=== PATIENT | female | born 1975 | race Caucasian/White ===

== ENCOUNTER 2017-06-15 03:00 | Observation (INO) | payer OTHER ==
[2017-06-15 03:01] VITALS: BP 147/75; PULSE 96; RESP 16; TEMP 98.6; O2SAT 100
[2017-06-15] MEDS ORDERED: CEPHALEXIN MONOHYDRATE 500 MG CAP PO ONE (04:30)
[2017-06-15] MEDS ORDERED: TETANUS/DIPHTHERIA TOXOID ADULT 0.5 ML VIAL IM ONE (04:30)
[2017-06-15] MEDS ORDERED: NORC5TAB PO (04:42)
[2017-06-15] MEDS ORDERED: CEPH-460 PO (04:42)
--- NOTE | 2017-06-15 04:55 | RADRPT ---
EXAM DATE/TIME: 06/15/2017 04:38 [place] COMPARISON: No previous studies available for comparison. INDICATIONS : Left hand through glass while at work. MEDICAL HISTORY : None. SURGICAL HISTORY : None. ENCOUNTER: Initial ACUITY: 1 day PAIN SCORE: 8/10 LOCATION: Left Hand FINDINGS: Three view examination of the left hand demonstrates no soft tissue swelling, dislocation, or fractur e. The carpal bones appear intact. The interphalangeal and metacarpophalangeal joints are intact. Bony mineralization is normal. CONCLUSION: No fracture or radiopaque foreign body. Pio Koehler MD on June 15, 2017 at 4:53 Board Certified Radiologist. This report was verified electronically.
--- NOTE | 2017-06-15 04:58 | PD ---
HPI Chief Complaint: Laceration/Skin Injury Time Seen by Provider: 04:03 Travel History International Travel<30 days: No Contact w/Intl Traveler<30days: No Traveled to known affect area: No History of Present Illness HPI 41-year-old right-hand dominant white female presents emergency department with a laceration to her left hand which occurred at work earlier this evening. The patient states that she was compacting the garbage in a garbage can when a shard of glass cut her left hand over her third MCP. The patient states that it bled for approximately 1 hour until it stopped bleeding. She states that they had cleansed it thoroughly and then applied wound adhesive. The patient states that she continued to do her work this evening until she noticed a abnormality over her third MCP of the middle finger. She states that she had noticed a irregularity and was concerned and presented to the ER for evaluation. She states that she has not had a tetanus shot over 5 years. She denies any numbness, tingling or weakness. Pain is minimal. PFSH Past Medical History Medical History: Denies Significant Hx Immunizations Current: No Tetanus Vaccination: > 5 Years ?: Not Tubal Ligation: Yes Past Surgical History Section: Yes Social History Alcohol Use: No Tobacco Use: Yes Substance Use: No Allergies-Medications (Allergen,Severity, Reaction): Coded Allergies: sesame seed (Verified Allergy, Unknown, 06/15/17) Reported Meds & Prescriptions Reported Meds & Active Scripts Active [place] (Hydrocodone-Acetaminophen) 5 Mg-325 Mg Tab 1 Tab PO Q8HR PRN Keflex (Cephalexin) 500 Mg Capsule 500 Mg PO Q6H 7 Days Review of Systems General / Constitutional: No: Fever Eyes: No: Visual changes HENT: No: Headaches Cardiovascular: No: Chest Pain or Discomfort Respiratory: No: Shortness of Breath Gastrointestinal: No: Abdominal Pain Genitourinary: No: Dysuria Musculoskeletal: Positive: Pain, No: Arthralgias, Limited ROM, Weakness, Edema Skin: No Rash Neurologic: No: Weakness, Paresthesia Psychiatric: No: Depression Endocrine: No: Polydipsia Hematologic/Lymphatic: No: Easy Bruising Physical Exam Narrative GENERAL: This is a well-nourished, well-developed patient, in no apparent distress. SKIN: No rashes, ecchymoses or lesions. Warm and dry. HEAD: Atraumatic. Normocephalic. EYES: PERRL, EOMI, no discharge or injection. No scleral icterus. EARS: Clear NOSE: Nasal turbinates appear normal. THROAT: Mucosa pink and moist. Airway patent. NECK: Trachea midline. supple, moves head freely. LUNGS: Clear to auscultation. CV: Regular in rhythm. ABDOMEN: Soft nontender. EXT: No clubbing cyanosis or edema. Patient has a 1 cm laceration over the dorsal third metacarpal of the left hand. The laceration goes through the subcutaneous tissues into the extensor tendon. There is a's central deficit approximately 20%-30%. There is concerned that this may have penetrated the joint capsule. Patient is able to fully extend and fully flex her finger without limitations or weakness. She has intact gross sensation and two-point discrimination. The remainder of the hand is unremarkable. Data Data Last Documented VS Vital Signs Date Time Temp Pulse Resp B/P (MAP) Pulse Ox O2 Delivery O2 Flow Rate FiO2 06/15/17 03:01 98.6 96 16 147/75 (99) 100 Room Air Orders Orders Hand, Complete ([id number]) (06/15/17 04:23) Tetanus/Diphtheria Tox Adult (Tetanus/Di (06/15/17 04:30) Cephalexin (Keflex) (06/15/17 04:30) Splint Or Brace Apply/Monitor (06/15/17 04:23) [facility] Medical Decision Making Medical Screen Exam Complete: Yes Emergency Medical Condition: Yes Medical Record Reviewed: Yes Interpretation(s) Last 24 hours Impressions Hand X-Ray 06/15/17 0423 Signed Impressions: Service Date/Time: Thursday, June 15, 2017 04:38 - CONCLUSION: No fracture or radiopaque foreign body. Pio Koehler MD Differential Diagnosis MDM: High Differential diagnoses: Fracture, sprain, strain, dislocation, contusion, neurovascular injury Narrative Course Patient's wound appears to have a laceration through the central portion of the tendon into the joint capsule. The wound has been thoroughly irrigated. Patient's given Keflex 1 g p.o. Tetanus immunization. X-rays negative. Patient's wound is closed with 2 simple sutures. She is placed in a splint in extension. The case has been discussed with Dr. DeCesare he has requested that the patient stay in the ER and he will see her first thing in the morning. Procedures Procedure Narrative LACERATION LOCATION: Left third MCP laceration LENGTH: 1 cm NUMBER OF STITCHES/PATRICK: 2 REPAIR: The area of the laceration was prepped with Betadine and sterilely draped. The laceration was infiltrated with 1% lidocaine with epinephrine. The wound was copiously irrigated and explored without evidence of foreign body , or neurovascular injury. Laceration reveals a central tendon injury with penetration of the joint capsule. the wound was closed using 5-0 Prolene. This was a simple single layer repair. A sterile dressing and splint in extension was applied. The patient was advised to keep the dressing clean and dry. Patient tolerated the procedure well. Diagnosis Primary Impression: Left third MCP laceration with extensor tendon and joint capsule injury Referrals: Bret Arroyo MD 2 days Patient Instructions: General Instructions Additional Instructions: Rest. Elevation. Keep clean and dry. Keflex. Lortab for severe pain. 3 Advil every 6 hours as needed for mild to moderate pain. Call the office Saturday for an appointment Saturday. Keep your hand clean and dry. Med/Other Pt SpecificInfo: Prescription(s) given Scripts Hydrocodone-Acetaminophen ([place]) 5 Mg-325 Mg Tab 1 TAB PO Q8HR Y for PAIN, #9 TAB 0 Refills Prov: Lulu Thompson MD 06/15/17 Cephalexin (Keflex) 500 Mg Capsule 500 MG PO Q6H for Infection for 7 Days, #28 CAP 0 Refills Prov: Lulu Thompson MD 06/15/17 Disposition: 01 DISCHARGE HOME Condition: Stable Rafita Hay Jun 15, 2017 04:58
--- NOTE | 2017-06-15 11:19 | PD ---
Physical Exam Time Seen by Provider: 07:00 Narrative Report received from Rafita norton PA-C at change of shift. The patient is awaiting hand surgeon to come and evaluate the patient at the bedside. Data Data Last Documented VS Vital Signs Date Time Temp Pulse Resp B/P (MAP) Pulse Ox O2 Delivery O2 Flow Rate FiO2 06/15/17 03:01 98.6 96 16 147/75 (99) 100 Room Air Orders Orders Hand, Complete ([id number]) (06/15/17 04:23) Tetanus/Diphtheria Tox Adult (Tetanus/Di (06/15/17 04:30) Cephalexin (Keflex) (06/15/17 04:30) Splint Or Brace Apply/Monitor (06/15/17 04:23) Cefazolin Inj (Ancef Inj) (06/15/17 11:15) Consult Hand Surgery (06/15/17 ) Admit Order (Ed Use Only) (06/15/17 11:36) MDM Supervised Visit with JAVIER: No Narrative Course Report received from Rafita norton PA-C at change of shift. The patient is awaiting hand surgeon to come and evaluate the patient at the bedside. 1100: Dr. Arroyo at bedside. He is taking the patient to surgery and says she can be discharged after surgery. Patient will be admitted to medical with a consult to hand and admitted for 23 hour obs. Call placed for patient admission. 1137: I spoke with KISHAN Montgomery, and report was given for patient admission. Physician Communication Physician Communication KISHAN Montgomery Diagnosis Primary Impression: Left third MCP laceration with extensor tendon and joint capsule injury Admitting Information Admitting Physician Requests: Observation Referrals: Bret Arroyo MD 2 days Patient Instructions: General Instructions Departure Forms: Tests/Procedures Additional Instruction: Rest. Elevation. Keep clean and dry. Keflex. Lortab for severe pain. 3 Advil every 6 hours as needed for mild to moderate pain. Call the office Saturday for an appointment Saturday. Keep your hand clean and dry. Scripts Hydrocodone-Acetaminophen ([place]) 5 Mg-325 Mg Tab 1 TAB PO Q8HR Y for PAIN, #9 TAB 0 Refills Prov: Lulu Thompson MD 06/15/17 Cephalexin (Keflex) 500 Mg Capsule 500 MG PO Q6H for Infection for 7 Days, #28 CAP 0 Refills Prov: Lulu Thompson MD 06/15/17 Disposition: 01 DISCHARGE HOME Condition: Stable Josiaen Browning Jun 15, 2017 11:19
[2017-06-15 11:40] VITALS: BP 137/72; PULSE 90; RESP 16; TEMP 98.4; O2SAT 100
--- NOTE | 2017-06-15 11:50 | PD.CONS ---
History of Present Illness Consult Requested By Primary Care Physician No Primary Care Physician Diagnoses: (1) Hand laceration involving tendon History of Present Illness 41-year-old female who reports that she was pushing garbage into a trash can when a broken piece of glass lacerated the dorsum of her left third metacarpophalangeal joint. Patient came to the emergency room, was washed out by the ER physician, and closed. Patient denies numbness tingling. Patient is up-to-date on tetanus. Review of Systems Review of systems otherwise noncontributory to presenting complaint Past Family Social History Allergies: Coded Allergies: sesame seed (Verified Allergy, Unknown, 06/15/17) Past Medical History Denies Past Surgical History Reported Medications Denies Family History Family history noncontributory to presenting complaint Social History Occasional alcohol no tobacco Physical Exam Vital Signs Vital Signs Date Time Temp Pulse Resp B/P (MAP) Pulse Ox O2 Delivery O2 Flow Rate FiO2 06/15/17 03:01 98.6 96 16 147/75 (99) 100 Room Air Physical Exam No acute distress Alert and oriented 3 Moist mucous membranes PERRLA Skin without rash Respirations nonlabored No gross neurologic deficits Left upper extremity Patient with 1 cm transverse laceration at the level of the dorsal metacarpophalangeal joint Palpable deficit of the extensor tendon centrally No extensor tendon lag of the middle finger Active extension of the left weaker than right, though confounded by pain Sensation intact light touch distally Normal cascade No erythema or other signs of infection Imaging Three-view x-ray image of the hand personally reviewed by me showing no retained foreign body or other acute osseous finding Assessment and Plan Problem List: (1) Hand laceration involving tendon ICD Codes: S61.419A - Laceration without foreign body of unspecified hand, initial encounter; S66.929A - Laceration of unspecified muscle, fascia and tendon at wrist and hand level, unspecified hand, initial encounter Assessment and Plan 41-year-old female who presents with likely zone 5 extensor tendon laceration of the left third digit. Risks benefits and alternative treatments discussed with patient at length and patient's spouse All questions answered Patient and patient's spouse expressed understanding Informed consent obtained Patient is at increased risk of septic arthritis and cellulitis given extensor tendon laceration and wound caused by glass from a garbage We'll plan for left MCP washout should the joint be involved, as well as extensor tendon repair, should the extensor tendon be injured Bret Arroyo MD Jun 15, 2017 11:50
[2017-06-15] MEDS ORDERED: LIDOCAINE HCL 1% PF 5 ML SYRINGE OTHER ONE (12:00)
[2017-06-15] MEDS ORDERED: LACTATED RINGER'S 1000 ML INJ 1,000 ML IV ONE (12:00)
[2017-06-15] MEDS ORDERED: DEXAMETHASONE SOD PHOS 4 MG/ML VIAL IV ONE (12:00)
[2017-06-15] MEDS ORDERED: ceFAZolin INJ 1,000 MG VIAL IV ONE (12:00)
[2017-06-15] MEDS ORDERED: KETOROLAC TROMETHAMINE 30 MG/ML (IVP) VIAL IV PUSH ONE (12:00)
[2017-06-15] MEDS ORDERED: PROPOFOL 200 MG/20 ML AMP IV ONE (12:00)
[2017-06-15] MEDS ORDERED: ONDANSETRON HCL 4 MG/2 ML VIAL IV PUSH ONE (12:00)
[2017-06-15] MEDS ORDERED: ONDANSETRON HCL 4 MG/2 ML VIAL IVP PRN (13:45)
[2017-06-15] MEDS ORDERED: NALOXONE HCL 0.4 MG/ML AMP IV PUSH PRN (13:45)
[2017-06-15] MEDS ORDERED: ACETAMINOPHEN 325 MG TAB PO PRN (13:45)
[2017-06-15] MEDS ORDERED: SODIUM CHLORIDE 0.9% FLUSH 10 ML FLUSH IV FLUSH PRN (13:45)
--- NOTE | 2017-06-15 13:58 | HHI.HP ---
[facility] Primary [facility] Physician No Primary Care Physician Admission Diagnosis Left third MCP laceration with extensor tendon and joint capsule inj Diagnoses: Chief Complaint: left third CMP laercationof the extensor tendon Travel History International Travel<30 Days: No Contact w/Intl Traveler <30 Da: No Traveled to Known Affected Are: No History of Present Illness 41-year-old female who reports that she was pushing garbage into a trash can when a broken piece of glass lacerated the back of her hand. Patient stated she able to move her fingers. Denied any pain but stated it felt numb at the site. Tetanus UTD. patient stated she was put under anesthesia in the past and had no complications. She also denied any CP, SOB, palpitations, lightheadedness/dizziness. All other ROS reviewed and negative. Past Family Social History Past Medical History Denied any PMHs Past Surgical History C section Reported Medications Reported Meds & Active Scripts Active [place] (Hydrocodone-Acetaminophen) 5 Mg-325 Mg Tab 1 Tab PO Q8HR PRN Keflex (Cephalexin) 500 Mg Capsule 500 Mg PO Q6H 7 Days Allergies: Coded Allergies: sesame seed (Verified Allergy, Unknown, 06/15/17) Active Ordered Medications Current Medications Tetanus/ Diphtheria Toxoids (Tetanus/ Diphtheria Tox Adult) 0.5 ml ONCE ONCE IM Last administered on 06/15/17at 04:32; Start 06/15/17 at 04:30; Stop 06/15/17 at 04:37; Status DC Cephalexin Monohydrate (Keflex) 1,000 mg ONCE ONCE PO Last administered on at 04:33; Start 06/15/17 at 04:30; Stop 06/15/17 at 04:37; Status DC Cefazolin Sodium 1000 mg/Sodium Chloride 100 ml @ 200 mls/hr ONCE ONCE IV ; Start 06/15/17 at 11:15; Stop 06/15/17 at 11:44; Status DC Sodium Chloride 1,000 ml @ 100 mls/hr Q10H IV ; Start 06/15/17 at 14:00 Sodium Chloride (NS Flush) 2 ml UNSCH PRN IV FLUSH FLUSH AFTER USING IV ACCESS ; Start 06/15/17 at 13:45 Sodium Chloride (NS Flush) 2 ml BID IV FLUSH ; Start 06/15/17 at 21:00 Acetaminophen (Tylenol) 650 mg Q4H PRN PO TEMP > 100.4; Start 06/15/17 at 13:45 Ondansetron HCl (Zofran Inj) 4 mg Q6H PRN IVP NAUSEA OR VOMITING; Start at 13:45 Naloxone HCl (Narcan Inj) 0.4 mg UNSCH PRN IV PUSH SEE LABEL COMMENTS; Start at 13:45 Family History Father hx of cardiovascular disease Social History smokes tobacco 1-2 pack over week. denied any alcohol or illicit drug use. Physical Exam Vital Signs Vital Signs Date Time Temp Pulse Resp B/P (MAP) Pulse Ox O2 Delivery O2 Flow Rate FiO2 06/15/17 11:40 98.4 90 16 137/72 (93) 100 Room Air 06/15/17 03:01 98.6 96 16 147/75 (99) 100 Room Air Physical Exam GENERAL: This is a well-nourished, well-developed patient, in no apparent distress. SKIN: No rashes, ecchymoses or lesions. Cool and dry. HEAD: Atraumatic. Normocephalic. No temporal or scalp tenderness. EYES: Pupils equal round and reactive. Extraocular motions intact. No scleral icterus. No injection or drainage. ENT: Nose without bleeding, purulent drainage or septal hematoma. Throat without erythema, tonsillar hypertrophy or exudate. Uvula midline. Airway patent. NECK: Trachea midline. No JVD or lymphadenopathy. Supple, nontender, no meningeal signs. CARDIOVASCULAR: Regular rate and rhythm without murmurs, gallops, or rubs. RESPIRATORY: Clear to auscultation. Breath sounds equal bilaterally. No wheezes , rales, or rhonchi. GASTROINTESTINAL: Abdomen soft, non-tender, nondistended. No hepato-splenomegaly , or palpable masses. No guarding. MUSCULOSKELETAL left hand 3rd dorsal MCP sutures intact mild erythema. sensation intact. full ROM but slow with the 3rd left digit. No joint tenderness, effusion, or edema noted. No calf tenderness. Negative Homans sign bilaterally. NEUROLOGICAL: Awake and alert. Cranial nerves II through XII intact. Motor and sensory grossly within normal limits. Five out of 5 muscle strength in all muscle groups. Normal speech. Imaging Last Impressions Hand X-Ray 06/15/17 [id number] Signed Impressions: Service Date/Time: Thursday, June 15, 2017 04:38 - CONCLUSION: No fracture or radiopaque foreign body. MD Altagracia Bush VTE Risk Assessment Caprini VTE Risk Assessment: No/Low Risk (score <= 1) Caprini Risk Assessment Model Point Value = 1 Point Value = 2 Point Value = 3 Point Value = 5 Age 41-60 Minor surgery BMI > 25 kg/m2 Swollen legs Varicose veins or History of unexplained or recurrent spontaneous Oral contraceptives or hormone replacement Sepsis (< 1 month) Serious lung disease, including pneumonia (< 1 month) Abnormal pulmonary function Acute myocardial infarction Congestive heart failure (< 1 month) History of inflammatory bowel disease Medical patient at bed rest Age 61-74 Arthroscopic surgery Major open surgery (> 45 min) Laparoscopic surgery (> 45 min) Malignancy Confined to bed (> 72 hours) Immobilizing plaster cast Central venous access Age >= 75 History of VTE Family history of VTE Factor V Leiden Prothrombin [id number] Lupus anticoagulant Anticardiolipin antibodies Elevated serum homocysteine Heparin-induced thrombocytopenia Other congenital or acquired thrombophilia Stroke (< 1 month) Elective arthroplasty Hip, pelvis, or leg fracture Acute spinal cord injury (< 1 month) Prophylaxis Regimen Total Risk Factor Score Risk Level Prophylaxis Regimen 0-1 Low Early ambulation 2 Moderate Order ONE of the following: *Sequential Compression Device (SCD) *Heparin 5000 units SQ BID 3-4 Higher Order ONE of the following medications: *Heparin 5000 units SQ TID *Enoxaparin/Lovenox 40 mg SQ daily (WT < 150 kg, CrCl > 30 mL/min) *Enoxaparin/Lovenox 30 mg SQ daily (WT < 150 kg, CrCl > 10-29 mL/min) *Enoxaparin/Lovenox 30 mg SQ BID (WT < 150 kg, CrCl > 30 mL/min) AND/OR *Sequential Compression Device (SCD) 5 or more Highest Order ONE of the following medications: *Heparin 5000 units SQ TID (Preferred with Epidurals) *Enoxaparin/Lovenox 40 mg SQ daily (WT < 150 kg, CrCl > 30 mL/min) *Enoxaparin/Lovenox 30 mg SQ daily (WT < 150 kg, CrCl > 10-29 mL/min) *Enoxaparin/Lovenox 30 mg SQ BID (WT < 150 kg, CrCl > 30 mL/min) AND *Sequential Compression Device (SCD) Assessment and Plan Assessment and Plan The 41 y/o Left third MCP laceration with extensor tendon and joint capsule injury -Hand surgeon consulted and scheduled for OR today. -per Hand surgeon can be d/c after procedure. DVT prophylaxis -low risk -ambulate Code Status full Discussed Condition With patient and her nurse Arminda Senior MD Jun 15, 2017 13:58
[2017-06-15] MEDS ORDERED: SODIUM CHLOR 0.9% 1000 ML INJ 1,000 ML IV SCH (14:00)
[2017-06-15] MEDS ORDERED: LIDOCAINE HCL 1% 50 ML VIAL ONE (14:42)
[2017-06-15] MEDS ORDERED: BUPIVACAINE HCL PF 0.5% 30 ML VIAL ONE (14:42)
[2017-06-15] MEDS ORDERED: BACITRACIN TOP OINT 15 GM TUBE ONE (14:42)
[2017-06-15] MEDS ORDERED: NEOMYCIN/POLYMYXIN 1 ML G.U. IRRIGANT ONE (14:44)
[2017-06-15] MEDS ORDERED: GENTAMICIN SULFATE 80 MG/2 ML VIAL ONE (16:22)
[2017-06-15] MEDS ORDERED: MIDAZOLAM HCL 2 MG/2 ML VIAL ONE (17:14)
[2017-06-15] MEDS ORDERED: oxyCODONE/ACETAMINOPHEN 5 MG/325 MG TAB PO PRN (17:30)
[2017-06-15] MEDS ORDERED: DO NOT ADM ANY ANTICOAGULANT DRUGS PRN (17:30)
[2017-06-15 17:42] VITALS: BP 130/72; PULSE 60; RESP 20; TEMP 97.6; O2SAT 98
[2017-06-15] MEDS ORDERED: OXYC1TAB63 PO (18:37)
--- NOTE | 2017-06-15 18:39 | HHI.DCPOC ---
Discharge Care Plan Diagnosis: (1) Hand laceration involving tendon Goals to Promote Your Health * To prevent worsening of your condition and complications * To maintain your health at the optimal level Directions to Meet Your Goals Take your medications as prescribed Follow your dietary instruction Follow activity as directed Keep your appointments as scheduled Take your immunizations and boosters as scheduled If your symptoms worsen call your PCP, if no PCP go to Urgent Care Center or Emergency Room Smoking is Dangerous to Your Health. Avoid second hand smoke Call the 24-hour hour crisis hotline for domestic abuse at Arminda Senior MD Jun 15, 2017 18:39
[2017-06-15] MEDS ORDERED: SODIUM CHLORIDE 0.9% FLUSH 10 ML FLUSH IV FLUSH SCH (21:00)
--- NOTE | 2017-06-21 19:00 | PD.OP ---
Operative Report Date of Surgery: Jun 15, 2017 Preoperative Diagnosis: (1) Hand laceration involving tendon Postoperative Diagnosis: (1) Hand laceration involving tendon Procedure: Repair extensor tendon of hand without free graft ([id number]) Anesthesia: General Surgeon: Bret Blackburn Housecleaner Floor(s): . Operation and Findings: 41-year-old female who presented after injuring her left dorsal hand while pushing trash into a garbage can at work by lacerating the soft tissue overlying the dorsal third metacarpal head on a broken piece of glass. Risks benefits and alternative treatments were discussed. All questions were answered. Patient expressed understanding. The patient elected to assume the risks of operative exploration of the wound and possible extensor tendon repair. Informed consent was obtained. The surgical site was marked preoperatively. The patient was taken to the operating room. The patient was already on antibiotics. All pressure points were padded. After the smooth induction of general anesthesia, a surgical timeout was performed. Quarter percent Marcaine with epinephrine was instilled proximal to the laceration site. And appropriately padded upper extremity tourniquet was placed. Surgical site was prepped and draped in the usual sterile fashion. After exsanguination using an Esmarch, the tourniquet was inflated. The laceration was extended proximally and distally and the wound explored. The extensor tendon was found to be completely lacerated at the level of the sagittal bands. On further exploration, the joint capsule appeared intact. The wound was copiously irrigated with antibacterial irrigation. The tendon was repaired using interrupted 4-0 nylon in a horizontal mattress fashion, producing a 4 core repair. The skin was closed using interrupted 3-0 Vicryl followed by interrupted 4-0 nylon in a horizontal mattress fashion. The wound was dressed with bacitracin Xeroform and dry gauze. An appropriately padded volar blocking splint was fashioned. The tourniquet was let down at 39 minutes. All digits pinked up nicely. The patient was awoken from anesthesia and arrived stable and doing well to the PACU. All needle sponge and instrument counts were correct 2. Bret Blackburn MD 2, 2018 19:00
== END 2017-06-15 21:07 | disposition home or self-care (01) ==
LOC: NEPD 03:00 → NEDA 11:38 → NEPGCP 18:07
PROVIDERS: ADMIT Family Medicine; ATTEND Family Medicine
DX: S66.323A Laceration of extensor muscle, fascia and tendon of left middle finger at wrist and hand level, initial encounter (principal); S61.412A Laceration without foreign body of left hand, initial encounter; W25.XXXA Contact with sharp glass, initial encounter; Y99.0 Civilian activity done for income or pay; Z72.0 Tobacco use
CPT/HCPCS: 01810; 12001; 26410; 73130; 90714; 99285; G0378; J0690; J1100; J1580; J1885; J2250; J2405; J3010; J7030; J7120